=== PATIENT | male | born 1995 | race Caucasian/White ===

== ENCOUNTER 2016-11-23 05:18 | Day surgery (SDC) | payer OTHER ==
[2016-11-15 13:50] VITALS: BMI 25.0
[~2016-11-23] VITALS: Ht 185.4 cm; Wt 88.6 kg
[2016-11-23 05:25] VITALS: BP 124/75; PULSE 61; TEMP 36.7; O2SAT 97; Ht 185.4 cm; Wt 88.6 kg
--- NOTE | 2016-11-23 06:04 | History and Physical ---
History & Physical Date Nov 23, 2016. History of Present Illness The patient is a 21 year old male with complaints of pain left groin area was dx with left ing hernia by ultrasound holly 1 month ago at school i saw him then no acute issues and he his planning for surgery now since been on spring. He is a weight [place] Additional History Hepatic Disease: No Endocrine Disorder: No Kidney Disease: No Hypertension: Yes (was worked up in past but takes no meds) Heart Disease: No Bleeding Tendencies: No Infectious Diseases: No Allergies Coded Allergies: No Known Allergies (Unverified , 11/23/16) Home Medications Miscellaneous Medications [none] Physical Examination Skin: warm/dry, no rash Eyes: normal inspection, EOMI, sclerae normal ENT: normal ENT inspection, pharynx normal Head: normocephalic, atraumatic Neck: supple, no adenopathy, trachea midline Respiratory/Chest: lungs clear, normal breath sounds, no respiratory distress Cardiovascular: regular rate, rhythm, no edema, no murmur Abdomen / GI: + pertinent finding (left ing hernia appreciated only with coughing) Back: normal inspection Extremities: normal inspection, normal range of motion Genitourinary - Male: normal male genitalia, normal testicles Diagnosis symp left ing hernia Plan of Treatment open repair of left ing hernia r and c explained to pt including usage of mesh if indicated
[2016-11-23] MEDS ORDERED: BUPIVACAINE 0.5 % 5 MG/1 ML MPF 30ML VIAL ONE (06:34)
[2016-11-23] MEDS ORDERED: MIDAZOLAM HCL 1 MG/ML 2ML VIAL ONE (06:37)
[2016-11-23] MEDS ORDERED: FENTANYL CITRATE INJ 50 MCG/1 ML 2 ML VIAL ONE (06:37)
[2016-11-23] MEDS ORDERED: LACTATED RINGER'S 1000ML 1,000 ML IV PRN (07:11)
[2016-11-23] MEDS ORDERED: DiphenhydrAMINE HCL 50 MG/ML VIAL IV PRN (07:15)
[2016-11-23] MEDS ORDERED: METOCLOPRAMIDE HCL INJ 5 MG/ML 2 ML VIAL IV PRN (07:15)
[2016-11-23] MEDS ORDERED: HYDROmorphone INJ 1 MG/ML SYR IV PRN (07:15)
[2016-11-23] MEDS ORDERED: FENTANYL CITRATE INJ 50 MCG/1 ML 2 ML VIAL IV PRN (07:15)
[2016-11-23] MEDS ORDERED: ONDANSETRON INJ 2 MG/ML 2 ML VIAL IV PRN ×2 (07:15→08:15)
[2016-11-23] MEDS ORDERED: LIDOCAINE HCL 2% 2 ML VIAL (20MG/ML) ONE (07:20)
[2016-11-23] MEDS ORDERED: DEXAMETHASONE SOD INJ 4 MG/ML VIAL ONE (07:20)
[2016-11-23] MEDS ORDERED: KETOROLAC TROMETHAMINE 30 MG/ML VIAL ONE (07:20)
[2016-11-23] MEDS ORDERED: ONDANSETRON INJ 2 MG/ML 2 ML VIAL ONE (07:20)
[2016-11-23] MEDS ORDERED: CEFAZOLIN SOD 1 GM VIAL ONE (07:20)
[2016-11-23] MEDS ORDERED: PROPOFOL IV EMULSION 10 MG/ML 20 ML VIAL IV ONE (07:20)
--- NOTE | 2016-11-23 07:59 | [facility] Post Operative Brief Note ---
Immediate Operative Summary Operative Date Nov 23, 2016. Pre-Operative Diagnosis Left inguinal hernia Post-Operative Diagnosis same as pre-operative direct Procedure(s) Performed Left Open Direct Inguinal Hernia Jevon Repair Surgeon Dr. Perry Ambrosio Shared Services And Outsourcing Manager Surgeon(s) Darren Rocha PA-C Estimated Blood Loss 3ml Findings direct hernia Specimens no specimen per surgeon Anesthesia .5% marcaine anfd general
--- NOTE | 2016-11-23 08:01 | Medical Student: [facility] ---
Immediate Operative Summary Operative Date Nov 23, 2016. Pre-Operative Diagnosis Left inguinal hernia Post-Operative Diagnosis Left direct inguinal hernia Procedure(s) Performed Open repair of left direct inguinal hernia via Jevon ellis Surgeon Dr. Perry Ambrosio City Engineer Surgeon(s) Darren Rocha PA-C Estimated Blood Loss 3 cc Findings Small left direct inguinal hernia Specimens None Drains None Anesthesia GETA and local (.5% Marcaine) Complication(s) None Disposition Recovery Room / PACU (In stable condition)
[2016-11-23] MEDS ORDERED: LACTATED RINGER'S 1000ML 1,000 ML IV SCH (08:02)
[2016-11-23] MEDS ORDERED: OXYC-57 PO (08:03)
--- NOTE | 2016-11-23 08:06 | Discharge Instructions ---
Discharge Instructions Date of Service Nov 23, 2016. Visit Reason for Visit: Left Inguinal Hernia Discharge Discharge Diagnosis / Problem: hernia repair Discharge Goals Goal(s): Decrease discomfort Activity Recommendations Activity Limitations: as noted below Lifting Limitations: no more than 10 pounds Shower/Bathe: no limitations (may remove bandage tonight or tomorrow to shower , the skin glue is waterproof) Driving or Machine Use: resume 3 days after discharge (if not taking Percocet) Anesthesia . Post Anesthesia Instructions: If you have had General Anesthesia or IV Sedation: * Do not drive today. * Resume driving when surgeon permits. * Do not make important decisions or sign legal documents today. * Call surgeon for: 1. Temperature elevations greater than 101 degrees F. 2. Uncontrollable pain. 3. Excessive bleeding. 4. Persistent nausea and vomiting. 5. Medication intolerance (nausea, vomiting or rash). * For nausea and vomiting use only clear liquids such as: tea, soda, bouillon until nausea subsides, then gradually increase diet as tolerated. * If you have any concerns or questions, call your surgeon's office. If physician is unavailable and it is an emergency, call 911 or go to the nearest emergency room. . Instructions / Follow-Up Instructions / Follow-Up Dr. Ambrosio as planned, call [phone] for any questions or concerns You may take ibuprofen 600 mg three times daily instead of or between Percocet Ice groin off and on alternating every 20 minutes until bedtime Diet Recommendations Recommended Home Diet: no limitations Procedures Procedures Performed: Left Open Direct Inguinal Hernia Bassini Repair Pending Studies Studies pending at discharge: no Medical Emergencies . Who to Call and When: Medical Emergencies: If at any time you feel your situation is an emergency, please call 911 immediately. . Non-Emergent Contact Non-Emergency issues call your: Surgeon Call Non-Emergent contact if: you have a fever, temperature is above 101.5, your pain is not controlled, wound has increased redness . . "Provider Documentation" section prepared by Darren Rocha.
[2016-11-23] MEDS ORDERED: OXYCODONE/ACETAMINOPHEN 5-325 TAB PO PRN (08:15)
[2016-11-23] MEDS ORDERED: MoRPHine SULFATE 4 MG/ML 1 ML CARP\\VIAL IV PRN (08:15)
--- NOTE | 2016-11-23 08:26 | Anesthesiology Progress Note ---
Anesthesia Post Op Note Date & Time Nov 23, 2016 at 08:26 Vital Signs Pain Intensity: 0 Vital Signs Past 12 Hours Date Time Temp Pulse Resp B/P Pulse Ox O2 Delivery O2 Flow Rate FiO2 11/23/16 08:15 67 16 115/63 99 Mask 10 11/23/16 08:05 77 16 126/60 98 Mask 10 11/23/16 07:55 36.3 62 16 114/48 98 Mask 10 11/23/16 05:25 36.7 61 18 124/75 97 Room Air Notes Mental Status: alert / awake / arousable, participated in evaluation Pt Amnestic to Procedure: Yes Nausea / Vomiting: adequately controlled Pain: adequately controlled Airway Patency, RR, SpO2: stable & adequate BP & HR: stable & adequate Hydration State: stable & adequate Anesthetic Complications: no major complications apparent Pt still groggy but doing well.
[2016-11-23 08:40] VITALS: BP 127/59; PULSE 67; TEMP 36.9; O2SAT 99
[2016-11-23] MEDS ORDERED: OXYCODONE/ACETAMINOPHEN 5-325 TAB ONE (09:08)
[2016-11-23 09:10] VITALS: BP 110/51; PULSE 56; O2SAT 100
[2016-11-23 09:40] VITALS: BP 119/61; PULSE 68; TEMP 36.3; O2SAT 100
--- NOTE | 2016-11-23 13:22 | OPERATIVE REPORT ---
DATE OF OPERATION: 11/23/2016 SURGEON: Perry Ambrosio MD CONSTRUCTION MANAGER: Darren Rocha PA-C PREOPERATIVE DIAGNOSIS: Symptomatic left inguinal hernia. POSTOPERATIVE DIAGNOSIS: Same, direct. PROCEDURE: Open repair of direct inguinal hernia (Bassini repair). SUMMARY: The patient was brought into the operating room theater, general anesthetic. The left lower quadrant was prepped with Betadine scrubbing solution and properly draped. We used 0.5% Marcaine to infiltrate 2 fingerbreadths medial anterior superior iliac crest to the point that we placed a fascial about 2 mL of Marcaine. After obtaining this, we made an incision about 2 inches long parallel to the inguinal ligament, deepened through subcutaneous tissue. Very little subcutaneous fat was appreciated. The patient is quite athletic and does a lot of heavy lifting. We opened the external oblique along the course of its fibers to the external ring. The nerve was basically not dissected out since it was only seen at the symphysis pubis area able to elevate the cord structure with Claude drain. At this point, we identified that the patient had a direct weakness, prominently we dissected along the cord structures to the internal ring. There was no evidence of any indirect hernia or lipoma. At this point, we elected to close the defect using a Bassini repair rather than use any mesh since the patient is 21 years old. The transversalis fascia was then sutured onto the symphysis pubis, shelving portion of the inguinal ligament to reconstruct the internal ring. This was done with interrupted 2-0 silk suture. The repair appeared to be solid. The tip of a hemostat could go towards the internal ring. As stated, the nerve was just avoided throughout the procedure. We used more local anesthetic to irrigate the area and then closed the external oblique on top of the cord with 3-0 interrupted silk suture, reconstructing the external ring, 2-0 Dexon subcutaneous, 4-0 Monocryl and Dermabond for skin approximated. Procedure was tolerated well by the patient. Estimated blood loss approximately 3 mL. The patient was taken to recovery room in good condition. I attest to the content of the Intraoperative Record and any orders documented therein. Any exceptions are noted below. MTDD
== END 2016-11-23 10:00 | disposition home or self-care (01) ==
LOC: C.ACU 05:18
PROVIDERS: ATTEND Surgery
DX: K40.90 Unilateral inguinal hernia, without obstruction or gangrene, not specified as recurrent (principal)

== ENCOUNTER → 2017-06-01 | Outpatient (CLI) | payer OTHER ==
[~2017-06-01] MED LIST: GADAVIST IV PRN
--- NOTE | 2017-06-01 12:33 | DIAGNOSTIC IMAGING REPORT ---
MRI OF THE BRAIN WITHOUT AND WITH IV CONTRAST CLINICAL HISTORY: Headache. Visual changes. COMPARISON STUDY: No previous studies for comparison. TECHNIQUE: Utilizing a 1.5 Christy magnet and dedicated coil, multiplanar, multiecho imaging of the brain was performed pre and postcontrast administration. IV administration of 8.5 mL of Gadavist contrast was uneventful. FINDINGS: There are no areas of restricted diffusion. No acute intracranial hemorrhage, midline shift or mass effect is present. Brain volume is normal. Ventricular system is normal. Basilar cisterns are patent. There are no extra-axial collections. Flow-voids for the major intracranial vessels are present. There is no intracranial mass or pathologic enhancement. No parenchymal signal abnormality is present. Two left maxillary sinus mucous retention cysts measure up to 2.1 cm. Calvarial signal is normal. Orbits are unremarkable. IMPRESSION: 1. Normal MRI of the brain. 2. Left maxillary sinus mucous retention cysts. Electronically signed by: Dionisio Lamar M.D. 06/01/2017 12:32 PM Dictated Date/Time: 06/01/2017 12:26 PM
== END | disposition home or self-care (01) ==
LOC: C.MRI 11:30
PROVIDERS: ATTEND Family Medicine
DX: H53.9 Unspecified visual disturbance (principal); R51 Headache; J34.1 Cyst and mucocele of nose and nasal sinus

== ENCOUNTER → 2017-12-28 | Outpatient (CLI) | payer OTHER ==
[2017-12-28 14:40] LABS: HEP C IGG 13 YRS+OLDER_RFLX NEG (NEG)
[2018-01-02 20:27] LABS: HEPATITIS A IGM TC 51813E NON-REACTIVE (NON-REACTIVE); HEPATITIS B CORE IGM TC51854R NON-REACTIVE (NON-REACTIVE); HERPES SIMPLEX AB IGG-2 < 0.90 INDEX (< 0.90)
== END | disposition home or self-care (01) ==
LOC: C.LABPBG 08:40
PROVIDERS: ATTEND Physician Assistant
DX: Z11.3 Encounter for screening for infections with a predominantly sexual mode of transmission (principal)

== ENCOUNTER 2018-02-01 18:25 | Emergency (ER) | payer OTHER ==
[~2018-02-01] VITALS: Ht 182.9 cm; Wt 87.7 kg
[2018-02-01 18:34] VITALS: TEMP 36.7; Ht 182.9 cm; Wt 87.7 kg
[2018-02-01 19:13] LABS: BASO % 0.3 %; BASO ABS # 0.02 K/uL (0-0.2); EOS % 0.4 %; EOS ABS # 0.03 K/uL (0-0.5); HEMATOCRIT 40.6 % (42-52); HEMOGLOBIN 15.2 g/dL (14.0-18.0); IG# 0.01 K/uL (0.00-0.02); LYMPH % 23.5 %; LYMPH ABS # 1.66 K/uL (1.2-3.4); MEAN CELL VOLUME 84.8 fL (80-100); MEAN CORPUSCULAR HEMOGLOBIN 31.7 pg (25-34); MEAN CORPUSCULAR HGB CONC 37.4 g/dl (32-36); MEAN PLATELET VOLUME 9.4 fL (7.4-10.4); MONO ABS # 0.28 K/uL (0.11-0.59); NEUT % 71.7 %; NEUT ABS # 5.07 K/uL (1.4-6.5); PLATELET COUNT 202 K/uL (130-400); RED CELL DISTRIBUTION WIDTH CV 12.6 % (11.5-14.5); RED CELL DISTRIBUTION WIDTH SD 38.8 fL (36.4-46.3); WHITE BLOOD COUNT 7.07 K/uL (4.8-10.8)
[2018-02-01 19:33] LABS: CALCIUM 8.8 mg/dl (8.5-10.1); CREATININE 1.12 mg/dl (0.60-1.40); POTASSIUM 3.6 mmol/L (3.5-5.1)
[2018-02-01] MEDS ORDERED: DEXM15CA PO (19:35)
--- NOTE | 2018-02-01 19:43 | DIAGNOSTIC IMAGING REPORT ---
NECK ULTRASONOGRAPHY CLINICAL HISTORY: Neck swelling history of mono COMPARISON STUDY: No previous studies for comparison. FINDINGS: There is bilateral cervical lymphadenopathy. Bilateral intraparotid lymph nodes are visualized including a 15 x 11 x 6 mm lymph node within the left parotid. IMPRESSION: Bilateral cervical lymphadenopathy, likely reactive/infectious. Clinical follow-up to document resolution is recommended. Electronically signed by: Jalen Ron M.D. 02/01/2018 7:42 PM Dictated Date/Time: 02/01/2018 7:40 PM
[2018-02-01 20:12] VITALS: BP 121/80; PULSE 69; O2SAT 99
--- NOTE | 2018-02-01 21:04 | EMERGENCY ROOM VISIT NOTE ---
History Report prepared by Malachi: Rasta Nevarez Under the Supervision of: Dr. Ashvin Salvador D.O. First contact with patient: 18:37 Chief Complaint: REFERRED BY DOCTOR Stated Complaint: SWOLLEN LYMPH NODES History of Present Illness The patient is a 22 year old male who presents to the Emergency Room with complaints of worsening, swelling of the lymph nodes in his right neck beginning 2 months ago. The patient states he was diagnosed with mono a few months ago. He reports his lymph nodes were swollen then, and they have not gotten better. The patient notes he was at his dentist earlier today and was told to come to the ED because they should have gotten smaller since his diagnosis. He states he has been experiencing mild right upper quadrant abdominal pain. The patient reports his sorethroat, weakness, and tiredness are all getting better from his mono. He notes this was the first time he had mono. The patient denies a cough, runny nose, chest pain, nausea, vomiting, diarrhea, fevers, ear pain, and recent surgery. Source of History: patient Onset: 2 months ago Position: neck (right) Quality: other (lymph node swelling) Timing: worsening Associated Symptoms: + abdominal pain, No fevers, No cough, No chest pain, No nausea, No vomiting, No diarrhea Note: Denies: runny nose, ear pain Review of Systems See HPI for pertinent positives & negatives. A total of 10 systems reviewed and were otherwise negative. Past Medical & Surgical Medical Problems: (1) Mononucleosis Family History Patient reports no known family medical history. Social History Smoking Status: Never Smoker Alcohol Use: none Drug Use: none Marital Status: single Occupation Status: unemployed, student Current/Historical Medications Scheduled Dexmethylphenidate Hcl (Focalin Xr), 15 MG PO QAM Allergies Coded Allergies: No Known Allergies (Unverified , 11/23/16) Physical Exam Vital Signs Date Time Temp Pulse Resp B/P (MAP) Pulse Ox O2 Delivery O2 Flow Rate FiO2 02/01/18 20:12 69 18 121/80 99 02/01/18 18:34 36.7 76 18 127/83 99 Room Air Physical Exam GENERAL: Sitting up in bed, alert, well appearing, well nourished, no distress, non-toxic EYE EXAM: normal conjunctiva. OROPHARYNX: no exudate, no erythema, lips, buccal mucosa, and tongue normal and mucous membranes are moist NECK: supple, no nuchal rigidity, non-tender. Swelling of the right anterior cervical chain. LUNGS: Clear to auscultation. Normal chest wall mechanics HEART: no murmurs, S1 normal and S2 normal ABDOMEN: abdomen soft, non-tender, normo-active bowel sounds, no masses, no rebound or guarding. BACK: Back is symmetrical on inspection and there is no deformity, no midline tenderness, no CVA tenderness. SKIN: no rashes and no bruising UPPER EXTREMITIES: upper extremities are grossly normal. LOWER EXTREMITIES: No pitting edema. NEURO EXAM: Normal sensorium, cranial nerves II-XII grossly intact, normal speech, no gross weakness of arms, no gross weakness of legs. Medical Decision & Procedures ER Provider Diagnostic Interpretation: Radiology results as stated below per my review and the radiologist's interpretation: NECK ULTRASONOGRAPHY CLINICAL HISTORY: Neck swelling history of mono COMPARISON STUDY: No previous studies for comparison. FINDINGS: There is bilateral cervical lymphadenopathy. Bilateral intraparotid lymph nodes are visualized including a 15 x 11 x 6 mm lymph node within the left parotid. IMPRESSION: Bilateral cervical lymphadenopathy, likely reactive/infectious. Clinical follow-up to document resolution is recommended. Electronically signed by: Jalen Ron M.D. 02/01/2018 7:42 PM Dictated Date/Time: 02/01/2018 7:40 PM Laboratory Results 02/01/18 19:00 Red Blood Count 4.79, Mean Corpuscular Volume 84.8, Mean Corpuscular Hemoglobin 31.7, Mean Corpuscular Hemoglobin Concent 37.4, Mean Platelet Volume 9.4, Neutrophils (%) (Auto) 71.7, Lymphocytes (%) (Auto) 23.5, Monocytes (%) (Auto) 4.0, Eosinophils (%) (Auto) 0.4, Basophils (%) (Auto) 0.3, Neutrophils # (Auto) 5.07, Lymphocytes # (Auto) 1.66, Monocytes # (Auto) 0.28, Eosinophils # (Auto) 0.03, Basophils # (Auto) 0.02 02/01/18 19:00 Test 02/01/18 19:00 White Blood Count 7.07 K/uL (4.8-10.8) Red Blood Count 4.79 M/uL (4.7-6.1) Hemoglobin 15.2 g/dL (14.0-18.0) Hematocrit 40.6 % (42-52) Mean Corpuscular Volume 84.8 fL (80-100) Mean Corpuscular Hemoglobin 31.7 pg (25-34) Mean Corpuscular Hemoglobin Concent 37.4 g/dl (32-36) Platelet Count 202 K/uL (130-400) Mean Platelet Volume 9.4 fL (7.4-10.4) Neutrophils (%) (Auto) 71.7 % Lymphocytes (%) (Auto) 23.5 % Monocytes (%) (Auto) 4.0 % Eosinophils (%) (Auto) 0.4 % Basophils (%) (Auto) 0.3 % Neutrophils # (Auto) 5.07 K/uL (1.4-6.5) Lymphocytes # (Auto) 1.66 K/uL (1.2-3.4) Monocytes # (Auto) 0.28 K/uL (0.11-0.59) Eosinophils # (Auto) 0.03 K/uL (0-0.5) Basophils # (Auto) 0.02 K/uL (0-0.2) RDW Standard Deviation 38.8 fL (36.4-46.3) RDW Coefficient of Variation 12.6 % (11.5-14.5) Immature Granulocyte % (Auto) 0.1 % Immature Granulocyte # (Auto) 0.01 K/uL (0.00-0.02) Anion Gap 5.0 mmol/L (3-11) Est Creatinine Clear Calc Drug Dose 114.5 ml/min Estimated GFR () 108.3 Estimated GFR (Non- 93.4 BUN/Creatinine Ratio 17.4 (10-20) Calcium Level 8.8 mg/dl (8.5-10.1) Lipase 150 U/L (73-393) Laboratory results per my review. ED Course ED COURSE: Vital signs were reviewed and showed normal vital signs. The patients medical record was reviewed The above diagnostic studies were performed and reviewed. ED treatments and interventions as stated above. 1840: The patient was evaluated in room B11B. A complete history and physical examination was performed. 1999: Upon reevaluation, the patient is feeling better. I discussed my findings with the patient and he understands and agrees with the treatment plan. Based on the patients age, coexisting illnesses, exam and lab findings the decision to treat as an outpatient was made. The patient remained stable while under my care. The patient appeared well at the time of discharge. Medical Decision Differential Diagnosis includes but is not limited to dehydration, stroke, anemia, hypoglycemia, hyponatremia, hypernatremia, urinary tract infection, pneumonia, bronchitis, sepsis, gastroenteritis, additional abdominal pathology, metabolic abnormalities and infections. Patient is a 22-year-old male diagnosed with mono 2 months ago that presents the ER for swelling of the right side of his neck. He notes that he does still feel slightly tired and has a mild sore throat which has all been improving with the exception of the lymph nodes. Patient has no other complaints. Afebrile. CBC along with BMP was unremarkable. Patient has no abdominal pain on exam. Ultrasound of the neck does show cervical lymphadenitis. I do favor this likely residual from mono. No significant white blood cell abnormality to suggest leukemia/lymphoma. Patient was updated at bedside. Patient instructed to follow-up with PCP as outpatient Discussed with Pt concerning signs and symptoms to watch out for. Pt was instructed to follow up with their PCP and discussed with the patient their option to return to the ED at anytime for persistent or worsening symptoms. The appropriate anticipatory guidance and out- patient management, including indications for return to the emergency department , were explained at length to the patient and understood. Medication Reconcilliation Current Medication List: was personally reviewed by me Blood Pressure Screening Patient's blood pressure: Normal blood pressure Blood pressure disposition: Did not require urgent referral Impression Primary Impression: Cervical lymphadenopathy Scribe Attestation The scribe's documentation has been prepared under my direction and personally reviewed by me in its entirety. I confirm that the note above accurately reflects all work, treatment, procedures, and medical decision making performed by me. Departure Information Dispostion Home / Self-Care Referrals Sophie Lua DO (PCP) Forms HOME CARE DOCUMENTATION FORM, IMPORTANT VISIT INFORMATION, WORK / SCHOOL INSTRUCTIONS Patient Instructions ED Cervical Adenitis No Abx Tx, My [facility] Additional Instructions Please follow up with your primary care doctor with in the next 24 hours. Any worsening of your symptoms, please return to the ED immediately. This includes any fevers greater than 100.4, worsening pain, chest pain, shortness breath, persistent nausea, vomiting, unable to eat or drink, or any other concerning signs or symptoms from your standpoint. If swelling persists over the next 2 weeks you will need repeat imaging of your neck.
== END 2018-02-01 20:13 | disposition home or self-care (01) ==
LOC: C.EDB 18:27
DX: L03.222 Acute lymphangitis of neck (principal)

== ENCOUNTER 2018-05-06 15:10 | Emergency (ER) | payer OTHER ==
[~2018-05-06] VITALS: Ht 185.4 cm; Wt 86.4 kg
[~2018-05-06 15:10] MED LIST changes: +DEXM15CA PO; -GADAVIST IV PRN
[2018-05-06 15:20] VITALS: TEMP 36.8; Ht 185.4 cm; Wt 86.4 kg
[2018-05-06] MEDS ORDERED: DiphenhydrAMINE HCL 50 MG/ML VIAL IV STA (15:41)
[2018-05-06] MEDS ORDERED: PROCHLORPERAZINE 5 MG/ML 2 ML VIAL IV STA (15:41)
[2018-05-06] MEDS ORDERED: ACETAMINOPHEN 500 MG TAB PO STA (15:41)
[2018-05-06] MEDS ORDERED: SODIUM CHLORIDE 0.9% 1000ML 1,000 ML IV STA (15:41)
--- NOTE | 2018-05-06 16:03 | EMERGENCY ROOM VISIT NOTE ---
History Report prepared by Malachi: Ramirez Pizarro Under the Supervision of: Dr. Cj Thomas M.D. First contact with patient: 15:25 Chief Complaint: HEADACHE Stated Complaint: SEVERE RIGHT SIDE HEADACHE,FACIL NUMBNESS,CHEST PA History of Present Illness The patient is a 22 year old male who presents to the Emergency Room with complaints of an intermittent sharp headache in the top right area of his head beginning at 14:05 today. The patient reports that at that time, he was in the car when he suddenly felt like there was "a lightning bolt" on the top of his right head. He states that the vision in his right eye "became black" for a couple seconds, and he began experiencing numbness on the right side of his face that is currently slightly improved. He denies current vision or hearing problems. He denies recent trauma or medications. He states that at the time of onset, he was arguing and was feeling angry. He reports a history of migraines when he was around 11 years old, but does not believe the symptoms are the same. Source of History: patient Onset: 14:05 today Position: head Quality: sharp ("like a lightning bolt") Timing: intermittent Associated Symptoms: + numbness (right side of face) Note: vision in right eye "became black" for a couple seconds at onset Review of Systems See HPI for pertinent positives and negatives. A total of ten systems were reviewed and were otherwise negative. Past Medical & Surgical Medical Problems: (1) Mononucleosis Surgical Problems: (1) History of hernia repair Family History Patient reports no known family medical history. Social History Smoking Status: Never Smoker Alcohol Use: none Drug Use: none Marital Status: single Occupation Status: unemployed, student Current/Historical Medications Scheduled Dexmethylphenidate Hcl (Focalin Xr), 15 MG PO QAM Allergies Coded Allergies: No Known Allergies (Unverified , 11/23/16) Physical Exam Vital Signs Date Time Temp Pulse Resp B/P (MAP) Pulse Ox O2 Delivery O2 Flow Rate FiO2 05/06/18 17:32 60 14 130/63 100 05/06/18 17:07 73 18 109/50 98 Room Air 05/06/18 15:41 72 05/06/18 15:20 36.8 68 18 124/72 100 Room Air Physical Exam GENERAL: Awake, alert, well-appearing, NAD HENT: Normocephalic, atraumatic. EYES: Normal conjunctiva. Sclera non-icteric. PERRL. No anisocoria. NECK: Supple. No nuchal rigidity. FROM. RESPIRATORY: CTAB, no rhonchi, wheezing, crackles CARDIAC: RRR, no MRG ABDOMEN: Soft, NTND, BS+ MSK: No chest wall TTP, no LE edema NEURO: CN 2-12 intact, with exception of decreased sensation to V1 and V2. 5/5 upper and lower extremity strength, no dysmetria, no drift, good finger to nose. Finger count grossly normal. SKIN: No rash or jaundice noted. Multiple tattoos. Medical Decision & Procedures ER Provider Diagnostic Interpretation: Radiology results as stated below per my review and radiologist interpretation: HEAD WITHOUT CONTRAST (CT) CLINICAL HISTORY: 22 years-old Male presenting with right-sided headache, facial numbness. TECHNIQUE: Multidetector CT imaging of the head was performed without the use of intravenous contrast. IV contrast: None. A dose lowering technique was used consistent with the principles of ALARA (as low as reasonably achievable). COMPARISON: None. CT DOSE (mGy.cm): The estimated cumulative dose is 614.27 mGy.cm. FINDINGS: [employer] topogram: Unremarkable. Ventricles and sulci normal in size. Brain parenchyma normal in appearance with preserved valero-white differentiation. No mass effect or midline shift. No hemorrhage or acute territorial infarct. No extra-axial fluid collection. Paranasal sinuses and mastoid air cells clear. Calvarium intact. IMPRESSION: 1. No acute intracranial abnormality. Electronically signed by: Ric Patterson M.D. 05/06/2018 4:58 PM Dictated Date/Time: 05/06/2018 4:53 PM Medications Administered Medications (Trade) Dose Ordered Sig/Nisha Route Start Time Stop Time Status Last Admin Dose Admin Prochlorperazine Edisylate (Compazine Inj) 10 mg NOW STAT IV 05/06/18 15:41 05/06/18 15:45 DC 05/06/18 16:04 10 MG Sodium Chloride 1,000 ml @ 999 mls/hr Q1H1M STAT IV 05/06/18 15:41 05/06/18 16:41 DC 05/06/18 16:04 999 MLS/HR Acetaminophen (Tylenol Tab) 1,000 mg NOW STAT PO 05/06/18 15:41 05/06/18 15:45 DC 05/06/18 16:03 1,000 MG Diphenhydramine HCl (Benadryl Inj) 50 mg NOW STAT IV 05/06/18 15:41 05/06/18 15:45 DC 05/06/18 16:03 50 MG ECG Per My Interpretation Indication: other (severe headache, facial numbness) Rate (beats per minute): 66 Rhythm: normal sinus Findings: other (right axis deviation. No STS changes or TWI.) ED Course 1533: The patient was evaluated in room A9B. A complete history and physical exam was performed. 1714: I reevaluated the patient. Discussed results and discharge instructions: He verbalized understanding and agreement. The patient is ready for discharge. Medical Decision Nursing notes reviewed. Ancillary studies and prior records reviewed. The patient is a 22 year old male who presents to the Emergency Room with complaints of an intermittent sharp headache in the top right area of his head beginning at 14:05 today. Differential diagnosis: Etiologies such as migraine headache, meningitis, sinusitis, CO exposure, ICH, SAH, infection, tumor, headache, sinus thrombosis, arterial dissection, as well as others were entertained. Patient was seen and evaluated the bedside. Patient reportedly had gotten into a verbal altercation with family member and then spreads right-sided headache. Patient also did complain of mild paresthesias/numbness to the right side of the face. On exam this is noted is slightly decreased sensation although he can feel in the V1 and V2 distributions. The patient has no other focal neuro deficits. Patient states he did have a prior history of migraines as a child. Patient has no history of seizures. Patient did have a CT of the brain performed along with an EKG. EKG does fairly unremarkable. Patient CT brain is negative acute. The patient did receive medications for symptom control and upon reassessment the patient was feeling much improved. The patient virtually was asymptomatic at this point. I would find that given his lack of being hypertensive resolution of symptoms and lack of other concerning findings less likely to be subarachnoid or aneurysm. I do not believe he warrants an LP or further imaging at this time. The patient was told that if he has any worsening symptoms, persistent symptoms , or focal deficits he should return immediately for further evaluation and treatment. Patient was given strict follow-up, discharge, and return precautions. All questions were answered. Patient was deemed suitable for outpatient follow-up at this time. Patient agreed with the plan of care and was safely discharged home. Medication Reconcilliation Current Medication List: was personally reviewed by me Blood Pressure Screening Patient's blood pressure: Normal blood pressure Blood pressure disposition: Did not require urgent referral Impression Primary Impression: Headache Scribe Attestation The scribe's documentation has been prepared under my direction and personally reviewed by me in its entirety. I confirm that the note above accurately reflects all work, treatment, procedures, and medical decision making performed by me. Departure Information Dispostion Home / Self-Care Referrals Sophie Lua DO (PCP) Forms HOME CARE DOCUMENTATION FORM, IMPORTANT VISIT INFORMATION Patient Instructions Headache Pain, [facility] Additional Instructions Please return to the emergency department if you have worsening or recurrent symptoms not amenable to at-home treatment. Please call for a follow-up appointment with her primary care physician. Please take your medications as prescribed. If you have other concerns and/or complaints please feel free to also call your primary care physician's office or return the ED for further evaluation, management, and treatment. You have been examined and treated today on an emergency basis only. This is not a substitute for, or an effort to provide, complete comprehensive medical care. It is impossible to recognize and treat all injuries or illnesses in a single emergency department visit. It is therefore important that you follow up closely with [facility], your PCP, and/or your specialist(s). Call as soon as possible for an appointment. Thank you for your time and consideration. I look forward to speaking with you again soon. Please don't hesitate to call us if you have any questions. Problem Qualifiers Primary Impression: Headache Headache type: unspecified Headache chronicity pattern: acute headache Intractability: not intractable Qualified Codes: R51 - Headache
--- NOTE | 2018-05-06 16:59 | DIAGNOSTIC IMAGING REPORT ---
HEAD WITHOUT CONTRAST (CT) CLINICAL HISTORY: 22 years-old Male presenting with right-sided headache, facial numbness. TECHNIQUE: Multidetector CT imaging of the head was performed without the use of intravenous contrast. IV contrast: None. A dose lowering technique was used consistent with the principles of ALARA (as low as reasonably achievable). COMPARISON: None. CT DOSE (mGy.cm): The estimated cumulative dose is 614.27 mGy.cm. FINDINGS: [employer] topogram: Unremarkable. Ventricles and sulci normal in size. Brain parenchyma normal in appearance with preserved valero-white differentiation. No mass effect or midline shift. No hemorrhage or acute territorial infarct. No extra-axial fluid collection. Paranasal sinuses and mastoid air cells clear. Calvarium intact. IMPRESSION: 1. No acute intracranial abnormality. Electronically signed by: Ric Patterson M.D. 05/06/2018 4:58 PM Dictated Date/Time: 05/06/2018 4:53 PM
[2018-05-06 17:32] VITALS: BP 130/63; PULSE 60; O2SAT 100
== END 2018-05-06 17:34 | disposition home or self-care (01) ==
LOC: C.EDB 15:12 → C.EDA 17:34
DX: R51 Headache (principal); R20.0 Anesthesia of skin; Z79.899 Other long term (current) drug therapy